=== PATIENT | female | born 1950 | race Two or more races ===

== ENCOUNTER 2024-09-18 15:12 | Emergency (ER) | payer MEDICARE, MEDICAID, SELFPAY ==
[2024-09-18 15:13] VITALS: BMI 30.2
[2024-09-18 15:20] VITALS: BP 179/80; PULSE 79; RESP 18; TEMP 36.7; O2SAT 98
--- NOTE | 2024-09-18 15:28 | XR_ITS ---
Examination: CTA chest, with intravenous contrast. CTA abdomen, with intravenous contrast. CTA pelvis, with intravenous contrast. 2-D sagittal and coronal reconstructions. 3-D reconstructions. Date and time of exam: September 10, 2024 1742 hrs. Indications: Left lower abdominal pain chest pain today, clinical diagnosis mesenteric ischemia CTDI vol (mgy) 18.1 DLP (MGycm) 786 Technique: Multiple CTA images, 2.0 mm slice thickness, obtained chest, abdomen, pelvis, with the high-resolution 64 slice scanner. 100 cc Isovue-370 is administered intravenously. Sagittal and coronal 2-D reconstructions are obtained. 3-D reconstructions, angiographic images are obtained. 3-D postprocessing, including vascular maximum intensity projections. Low dose protocols were performed. One or more of the following dose reduction techniques were used; automated exposure control, adjustment of the mA and/or KV according to patient size, use of iterative reconstruction technique. Findings: No thoracic aortic aneurysm dilatation or dissection No pulmonary artery emboli No paratracheal tracheobronchial or bronchopulmonary adenopathy No pneumonia or pulmonary edema or pleural disease Liver is irregular in contour Gallstones, gallbladder wall is mildly thickened Common bile duct is enlarged 12 mm, axial image 171 suspicious for 8 mm common bile duct stone Spleen is not enlarged Aorta normal size Normal appendix No ischemic small bowel or colon noted Anteverted uterus Bladder intact Grade 1 anterolisthesis L4 on L5 Impression: No thoracic aortic aneurysm dilatation or dissection Negative for pulmonary artery emboli Cholelithiasis, thickened gallbladder wall Extrahepatic biliary tract dilatation, common bile duct 12 mm, findings consistent with a millimeters impacted distal common bile duct stone, recommend MRCP follow-up
--- NOTE | 2024-09-18 15:31 | EKG_ITS ---
[facility] Test Date: 2024-09-18 Pat Name: MERNA BARRAZA Department: Room: - Gender: Female Billing Coordinator: : 1950 Requested By: Jeff Barr Order Number: [id number] Reading MD: Jeff Barr Measurements Intervals [place] Rate: 88 P: 62 IL: 154 QRS: 4 QRSD: 116 T: 51 QT: 340 QTc: 412 Interpretive Statements SINUS RHYTHM MODERATE INTRAVENTRICULAR CONDUCTION DELAY [110+ ms QRS DURATION] NONSPECIFIC T-WAVE ABNORMALITY No previous ECG available for comparison /[id number]/[email or web address]/[id number]/[id number].pdf
--- NOTE | 2024-09-18 15:33 | EDNOTE_ITS ---
ED Abdominal Pain RME/HPI General Chief Complaint: Abdominal Pain Stated complaint: LEFT LOWER ABD PAIN TODAY WITH NAUSEA Time seen by provider: 09/18/24 15:13 Arrival date/time: 09/18/24 15:12 Limitations: language barrier RME / HPI RME / HPI narrative: Chief Complaint: Severe left upper quadrant (LUQ) abdominal pain, onset 2 to 3 hours ago. History of Present Illness (HPI): The patient was brought in by her with complaints of severe LUQ abdominal pain, which began 2 to 3 hours ago. The pain is described as severe in nature and has not been experienced before by the patient. There are no known aggravating or alleviating factors. The pain is associated with nausea. The patient was recently diagnosed with liver problems by her primary care provider about 3 weeks ago. She has a remote history of knee surgery and what appears to be bilateral tubal ligation. The patient is nondiabetic and denies any other significant medical history. Review of Systems (ROS): * General: Diaphoretic, pale * Gastrointestinal: Severe LUQ abdominal pain, nausea * Other systems: Negative except as noted above Past Medical History (PMH): * Knee surgery (remote) * Bilateral tubal ligation (remote) * Recently diagnosed with liver problems (3 weeks ago) Past Surgical History (PSH): * Knee surgery * Bilateral tubal ligation Medications: None Allergies: NKDA Differential Diagnosis (DDx): * Acute pancreatitis * Peptic ulcer disease * Cholecystitis * Splenic infarct or rupture * Gastritis * Hepatitis or other liver pathology Medical Decision Making (MDM): The patient presents with severe LUQ abdominal pain, nausea, and recent diagnosis of liver problems. Given the severity and new onset of symptoms, several potential diagnoses must be considered, including acute pancreatitis, peptic ulcer disease, cholecystitis, splenic issues, gastritis, and liver pathology. Initial diagnostic workup will include: * Laboratory tests: CBC, liver function tests, amylase, and lipase to assess for pancreatitis and liver dysfunction * Imaging studies: Abdominal ultrasound and/or CT scan to evaluate the liver, pancreas, spleen, and other abdominal organs The patient will be monitored closely, and pain management will be initiated. Further management will depend on the results of the diagnostic tests. The patient and her have been informed about the possible causes and the plan of care. The patient appears to be in pain, so supportive care and pain relief measures will be provided immediately. Plan: * Obtain lab work: CBC, liver function tests, amylase, and lipase * Perform imaging studies: Abdominal ultrasound and/or CT scan * Pain management: [Specify pain medication] * Monitor vital signs and reassess frequently * Keep the patient NPO (nothing by mouth) until further evaluation * Provide supportive care and reassurance to the patient and her Related Data Home Medications ?Medication ?Instructions ?Recorded ?Confirmed ibuprofen 600 mg tablet 600 mg PO Q6HR PRN PAIN #0 tabs 08/11/17 Previous Rx's ?Medication ?Instructions ?Recorded ibuprofen 600 mg tablet 600 mg PO Q6HR PRN PAIN #25 tabs 08/11/17 ibuprofen 600 mg tablet 600 mg PO TID PRN pain #30 tabs 12/13/23 Allergies Allergy/AdvReac Type Severity Reaction Status Date / Time NKA* Allergy Uncoded 09/18/24 15:15 Review of Systems Review of Systems Systems Reviewed: All systems reviewed, normal except as documented ED Exam Narrative Physical exam: Hazel beltrán General Limitations: Present language barrier General appearance: Present in distress and other (Patient is pale and diaphoretic. Is visibly shaky and appears to be in pain) Head Head exam: Present atraumatic Eye Eye exam: Present normal appearance ENT ENT exam: Present normal exam Neck Neck exam: Present normal inspection Chest Chest inspection: Present symmetric chest wall rise Respiratory Respiratory exam: Present normal lung sounds bilaterally Cardiovascular Cardiovascular exam: Present regular rate and systolic murmur Abdominal Exam Abdominal exam: Present soft and other (Patient has an obese abdomen. Despite pointing to her left upper quadrant as very painful area, has no tenderness) Back Exam Back exam: Present normal inspection Neurological Exam Neurological exam: Present alert and CN II-XII intact Psychiatric Psychiatric exam: Present depressed Skin Skin exam: Present warm and dry Course Quality Measures none Orders Category Date Time Status Ballet Teacher STAT Care 09/18/24 19:20 Active Continuous Pulse Oximetry STAT Care 09/18/24 19:20 Completed EKG (ED ONLY) *Do not use* NOW Care 09/18/24 15:31 Completed Insert IV NOW Care 09/18/24 15:28 Active Insert IV STAT Care 09/18/24 19:20 Active MRI Screening NOW Care 09/18/24 23:15 Active NPO STAT Care 09/18/24 19:[address] angio chest abdomen pelvis Stat Exams 09/18/24 15:28 Completed EKG (ED Only) Stat Exams 09/18/24 15:31 Draft MR MRCP Stat Exams 09/18/24 Ordered US gall bladder Stat Exams 09/18/24 19:11 Completed CBC Stat Lab 09/18/24 15:46 Completed CMP [Comprehensive Metabolic Panel] Stat Lab 09/18/24 15:46 Completed Lipase Stat Lab 09/18/24 19:53 Completed Magnesium Stat Lab 09/18/24 19:53 Completed Troponin I Stat Lab 09/18/24 15:46 Completed UA [Urinalysis] Stat Lab 09/18/24 17:26 Completed HYDROmorphone INJ [Dilaudid Inj] Med 09/18/24 15:31 Discontinued 1 mg IVP X1 ONE Ondansetron Inj [Zofran Inj] Med 09/18/24 15:31 Discontinued 4 mg IV X1 ONE Sodium Chloride 0.9% 500 ml [Ns] 500 ml Med 09/18/24 19:19 Discontinued IV 999 mls/hr Vital Signs Vital signs: Vital Signs Temperature 98.0 F 09/18/24 15:20 Pulse Rate 79 09/18/24 15:20 Respiratory Rate 18 09/18/24 15:20 Blood Pressure 179/80 H 09/18/24 15:20 Pulse Oximetry (%) 98 09/18/24 15:20 Oxygen Delivery Method Room Air 09/18/24 15:20 Abdominal Pain MDM MDM Narrative MDM Narrative:: Care transitioned to Dr. Lemon at shift change Patient data External records reviewed:: None Clinical information provided by:: patient Social determinants that could affect healthcare access:: none Patient has the following chronic illnesses:: NA How is presenting disease/condition affected by chronic disease/condition?: no chronic disease Evaluation data The following diagnostics were reviewed and interpreted by me:: lab results, radiology exam(s) and EKG tracing(s) Lab and/or radiology exams considered but not ordered:: Noted Interpretation Summary: Noted Medications / Prescriptions Medications or Prescriptions considered but not ordered:: NA Medication administrations:: Medication Administration History Discontinued Medications Hydromorphone HCl (Hydromorphone Inj 2 Mg/Ml Vial) 1 mg IVP X1 ONE Stop: 09/18/24 15:32 Last Admin: 09/18/24 16:00 Dose: 1 mg Documented By: TM Sodium Chloride (Ns) 500 mls @ 999 mls/hr IV .Q31M ONE Stop: 09/18/24 19:49 Last Infusion: 09/18/24 20:26 Dose: Infused Documented By: Admin: 09/18/24 19:51 Dose: 999 mls/hr Documented By: SF Ondansetron HCl (Ondansetron Inj 2 Mg/Ml Inj 2 Ml) 4 mg IV X1 ONE; Protocol Stop: 09/18/24 15:32 Last Admin: 09/18/24 16:01 Dose: 4 mg Documented By: TM Noted Consultations Consultation(s) initiated? (list below): No Diagnosis Differential diagnosis abdominal pain: abdominal pain and calculus of kidney Most likely diagnosis given after review of the tests above:: Mesenteric ischemia Admission Indicated Admission indicated?: not indicated Admission Request Was there a request for admission?: No Disposition Plan Disposition Plan: other (specify) Discharge Plan Plan Facility Pt Being Transferred to: Other-Specify in comment Disposition Comment: Care transitioned to Dr. Lemon Patient condition on transfer: Stable Prescriptions/Referrals Prescriptions/Med Rec: No Action ibuprofen 600 MG tablet 600 mg PO Q6HR PRN (Reason: PAIN) Qty: 0 ibuprofen 600 MG tablet 600 mg PO Q6HR PRN (Reason: PAIN) Qty: 25 0RF ibuprofen 600 mg tablet 600 mg PO TID PRN (Reason: pain) Qty: 30 0RF Referrals: Minesh Medina MD [Primary Care Provider] - In 1 week Problem List Clinical Impression: Abdominal pain, LUQ Patient/Caregiver Discharge Instructions Print Language: Telugu
[2024-09-18 15:55] LABS: Basophils % (Auto) 0 % (0-2.5); Eosinophils % (Auto) 0 % (0-10); Hematocrit 39.3 % (36.0-46.0); Hemoglobin 13.3 g/dL (12.0-16.0); Immature Granulocytes % (Auto) 0 % (0-0); Immature Granulocytes Auto 0.03 Thou/mm3 (0.00-0.00); Lymphocytes # (Auto) 1.2 Thou/mm3 (1.0-4.8); Lymphocytes % (Auto) 10 % (10-50); Mean Corpuscular HGB Conc 33.8 g/dl (31.0-37.0); Mean Corpuscular Hemoglobin 29.7 pg (25.0-35.0); Mean Corpuscular Volume 88 fL (80-100); Monocytes # (Auto) 0.4 Thou/mm3 (0.0-0.8); Monocytes % (Auto) 3 % (0-12); Neutrophils # (Auto) 10.4 Thou/mm3 (1.8-7.7); Neutrophils % (Auto) 86 % (37-80); Nucleated Red Blood Cell % 0 /100 WBC (0); Platelet Count 281 Thou/mm3 (140-440); RDW Standard Deviation 41.4 fL (36.4-46.3); Red Blood Count 4.48 Miln/mm3 (4.00-5.20); White Blood Count 12.2 Thou/mm3 (3.6-11.0)
[2024-09-18] MEDS: HYDROmorphone INJ 2 MG/ML VIAL 1 MG IVP (16:00)
[2024-09-18] MEDS: ONDANSETRON INJ 2 MG/ML INJ 2 ML 4 MG IV (16:01)
[2024-09-18 16:15] LABS: Alanine Aminotransferase 90 U/L (10-49); Albumin, Serum 4.5 gm/dL (3.4-4.8); Albumin/Globulin Ratio 1.8 (1.2-2.2); Alkaline Phosphatase 647 U/L (46-116); Anion Gap 7 (7-16); Aspartate Amino Transferase 98 U/L (0-34); BUN/Creatinine Ratio 29 Ratio (12-20); Bilirubin,Total 3.5 mg/dL (0.3-1.2); Blood Urea Nitrogen 20 mg/dL (9-23); Calcium 10.2 mg/dL (8.3-10.6); Calcium (Corrected) 10.2 mg/dL (8.5-10.1); Carbon Dioxide 26.9 mMol/L (20.0-31.0); Chloride 106 mMol/L (98-107); Creatinine (Component) 0.7 mg/dL (0.6-1.3); Estimated Creatinine Clearance 62.3 mL/min (>60); Globulin 2.5 gm/dL (2.3-3.5); Glucose 122 mg/dL (74-106); Osmolality,Calculated 283 (275-295); Potassium 3.8 mMol/L (3.4-5.1); Sodium 140 mMol/L (136-145); Troponin I < 0.020 ng/mL (0.0-0.045); eGFR > 60 See Note
--- NOTE | 2024-09-18 17:14 | PC.NURSE ---
CT called this RN for CT screening, this RN had to add it to worklist to complete. Ct screening done pt ready for ct
[2024-09-18 17:30] LABS: Collection Type, Urine Clean Catch
[2024-09-18 17:36] LABS: Bilirubin,Urine 1+ (Negative); Blood,Urine Negative (Negative); Clarity,Urine Clear (Clear/Hazy); Color,Urine Yellow (Lt Yel-Yel); Glucose, Urine Negative (Negative); Ketones,Urine Negative (Negative); Leukocyte Esterase,Urine Positive (Negative); Nitrite,Urine Negative (Negative); Protein,Urine Negative (Neg - Trace); RBC,Urine 2 /hpf (0-3); Specific Gravity,Urine 1.019 (1.001-1.035); Squamous Epithelial Cell,Urine 1 /hpf (0-5); WBC,Urine 3 /hpf (0-5)
[2024-09-18 18:08] VITALS: BP 160/76; PULSE 95; RESP 19; TEMP 37.3; O2SAT 95
--- NOTE | 2024-09-18 19:11 | XR_ITS ---
Examination: Abdomen sonogram, Limited Date and time of exam: September 18, 2024 2130 hrs. Indications: History right upper abdominal pain today Technique: Real-time ryan scale transabdominal sonographic images abdomen Findings: Gallbladder sludge Cholelithiasis Gallbladder wall 0.39 cm no edema Common bile duct abnormally enlarged 1.4 cm no definite stones Pancreatic head 2.7 cm 116.7 cm fatty infiltration no focal liver lesions Normal hepatopedal portal venous flow Patent IVC Impression: Cholelithiasis Borderline thickening gallbladder wall Abnormally enlarged common bile duct 14 mm, consider MRCP follow-up to exclude common bile duct stones and/or stricture
[2024-09-18 19:49] VITALS: BP 128/86; PULSE 91; RESP 17; O2SAT 95
[2024-09-18] MEDS: SODIUM CHLORIDE 0.9% 500 ML 500 ML 999 ML IV (19:51)
--- NOTE | 2024-09-18 20:20 | PC.NURSE ---
pt resting quietly. Disconected from monitor to go to BR. Pts assisted her to BR. Pt denies pain at this time. Appears in NAD.
[2024-09-18 20:21] VITALS: BP 130/85; PULSE 90; RESP 18; TEMP 37.1; O2SAT 97
[2024-09-18 20:26] LABS: Lipase 158 U/L (12-53); Magnesium 1.9 mg/dL (1.6-2.6)
--- NOTE | 2024-09-18 21:15 | PC.NURSE ---
called US tech. She states she will be here soon. Pt continues to rest quietly. Denies pain at this time. . at bedside. I updated pt on our progres.
--- NOTE | 2024-09-18 21:58 | PD.EDADDENDU ---
Emergency Room Addendum <June Medina - Last Filed: 09/19/24 04:00> Addendum Narrative: 1800: Care assumed from Dr. Barr. Past medical, surgical, social and family history reviewed. Vitals and home medications reviewed. Results and treatment plan discussed. I will assume the care of the patient at this time. Patient is a 74-year-old female who presented the emergency department complaining of left upper abdominal pain with nausea. Patient denies chest pain or equivalent, diaphoresis, dyspnea. Patient denied fever, shakes, chills, sweats. No flank pain, dysuria, urinary frequency or urgency. Patient denies ever having this kind of pain in the past. Patient has history of hypertension and hypercholesterolemia. When I saw the patient she states that she is completely pain-free now. She denies nausea. On exam her abdomen is soft and nontender. Lungs are clear. Regular rate and rhythm. Before I arrived the patient received Dilaudid and Zofran. A workup was ordered including blood work, EKG and a CTA chest/abdomen/pelvis for some reason. Patient's blood work shows a very mild leukocytosis with a left shift, normal electrolytes, normal anion gap, normal renal function. Patient's BUN/creatinine ratio was 29, normal glucose, LFTs are elevated. Troponins are normal. Urine is nondiagnostic. Patient's CTA chest abdomen pelvis showed evidence of gallbladder pathology with thickened wall and perhaps some surrounding stranding. Patient is dehydrated and I have ordered fluids. Patient states she is pain-free so I have will hold off on analgesics at this point. I will order Zosyn for the patient as she may have cholecystitis and I have ordered a right upper quadrant ultrasound. Were unable to obtain a MRCP at this hour at this facility.. Will continue to monitor closely EKG 15:45 normal sinus rhythm at 88. Normal axis no ectopy. QRS is 116, QTc 386. No signs of acute ischemia. 2300: I discussed the results with the patient at bedside and the need for a MRCP in the morning. Patient is agreeable to stay until the morning for the MRCP. At this time, patient is placed under observation. OBSERVATION NOTE: The patient was placed in ED observation care at 09/18/2024 at 2300. The patient was placed in ED observation care because of pending MRCP in the morning. The patients past medical history, social history, and family history were reviewed. The plan of care will include serial examinations. 0600: Care signed out to the next oncoming provider. Past medical, surgical, social and family history reviewed. Vitals and home medications reviewed. Results and treatment plan discussed. They will assume the care of the patient at this time and will follow the patient, pending MRCP. RADIOLOGY RESULTS: [facility] Report Signed Patient: MERNA BARRAZA [facility]. Record#: [id number] Birthdate: 1950 Age/Sex: 74 / F Location: [facility] Attending Dr: Ordering Physician: Freddie Lemon MD Date of Service: 09/18/24 Procedure(s): US gall bladder Accession Number(s): [id number] cc: Minesh Medina MD; Rashaad Gamino MD; Freddie Lemon MD~ Examination: Abdomen sonogram, Limited Date and time of exam: September 18, 2024 2130 hrs. Indications: History right upper abdominal pain today Technique: Real-time ryan scale transabdominal sonographic images abdomen Findings: Gallbladder sludge Cholelithiasis Gallbladder wall 0.39 cm no edema Common bile duct abnormally enlarged 1.4 cm no definite stones Pancreatic head 2.7 cm 116.7 cm fatty infiltration no focal liver lesions Normal hepatopedal portal venous flow Patent IVC Impression: Cholelithiasis Borderline thickening gallbladder wall Abnormally enlarged common bile duct 14 mm, consider MRCP follow-up to exclude common bile duct stones and/or stricture Dictated By: Rashaad Gamino MD Signed By: <Electronically signed by Rashaad Gamino MD in OV> 09/18/242150 ------- [facility] Report Signed Patient: MERNA BARRAZA [facility]. Record#: [id number] Birthdate: 1950 Age/Sex: 74 / F Location: [facility] Attending Dr: Ordering Physician: Jeff Barr MD Date of Service: 09/18/24 Procedure(s): CT angio chest abdomen pelvis Accession Number(s): [id number] cc: Minesh Medina MD; Jeff Barr MD; Rashaad Gamino MD~ Examination: CTA chest, with intravenous contrast. CTA abdomen, with intravenous contrast. CTA pelvis, with intravenous contrast. 2-D sagittal and coronal reconstructions. 3-D reconstructions. Date and time of exam: September 10, 2024 1742 hrs. Indications: Left lower abdominal pain chest pain today, clinical diagnosis mesenteric ischemia CTDI vol (mgy) 18.1 DLP (MGycm) 786 Technique: Multiple CTA images, 2.0 mm slice thickness, obtained chest, abdomen, pelvis, with the high-resolution 64 slice scanner. 100 cc Isovue-370 is administered intravenously. Sagittal and coronal 2-D reconstructions are obtained. 3-D reconstructions, angiographic images are obtained. 3-D postprocessing, including vascular maximum intensity projections. Low dose protocols were performed. One or more of the following dose reduction techniques were used; automated exposure control, adjustment of the mA and/or KV according to patient size, use of iterative reconstruction technique. Findings: No thoracic aortic aneurysm dilatation or dissection No pulmonary artery emboli No paratracheal tracheobronchial or bronchopulmonary adenopathy No pneumonia or pulmonary edema or pleural disease Liver is irregular in contour Gallstones, gallbladder wall is mildly thickened Common bile duct is enlarged 12 mm, axial image 171 suspicious for 8 mm common bile duct stone Spleen is not enlarged Aorta normal size Normal appendix No ischemic small bowel or colon noted Anteverted uterus Bladder intact Grade 1 anterolisthesis L4 on L5 Impression: No thoracic aortic aneurysm dilatation or dissection Negative for pulmonary artery emboli Cholelithiasis, thickened gallbladder wall Extrahepatic biliary tract dilatation, common bile duct 12 mm, findings consistent with a millimeters impacted distal common bile duct stone, recommend MRCP follow-up Dictated By: Rashaad Gamino MD Signed By: <Electronically signed by Rashaad Gamino MD in OV> 09/18/24 1822 <Freddie Lemon MD - Last Filed: 09/19/24 06:15> Addendum Narrative: 1800: Care assumed from Dr. Barr. Past medical, surgical, social and family history reviewed. Vitals and home medications reviewed. Results and treatment plan discussed. I will assume the care of the patient at this time. Patient is a 74-year-old female who presented the emergency department complaining of left upper abdominal pain with nausea. Patient denies chest pain or equivalent, diaphoresis, dyspnea. Patient denied fever, shakes, chills, sweats. No flank pain, dysuria, urinary frequency or urgency. Patient denies ever having this kind of pain in the past. Patient has history of hypertension and hypercholesterolemia. When I saw the patient she states that she is completely pain-free now. She denies nausea. On exam her abdomen is soft and nontender. Lungs are clear. Regular rate and rhythm. Before I arrived the patient received Dilaudid and Zofran. A workup was ordered including blood work, EKG and a CTA chest/abdomen/pelvis for some reason. Patient's blood work shows a very mild leukocytosis with a left shift, normal electrolytes, normal anion gap, normal renal function. Patient's BUN/creatinine ratio was 29, normal glucose, LFTs are elevated. Troponins are normal. Urine is nondiagnostic. Patient's CTA chest abdomen pelvis showed evidence of gallbladder pathology with thickened wall and perhaps some surrounding stranding. Patient is dehydrated and I have ordered fluids. Patient states she is pain-free so I have will hold off on analgesics at this point. I will order Zosyn for the patient as she may have cholecystitis and I have ordered a right upper quadrant ultrasound. Were unable to obtain a MRCP at this hour at this facility.. Will continue to monitor closely EKG 15:45 normal sinus rhythm at 88. Normal axis no ectopy. QRS is 116, QTc 386. No signs of acute ischemia. 2300: I discussed the results with the patient at bedside and the need for a MRCP in the morning. Patient is agreeable to stay until the morning for the MRCP. At this time, patient is placed under observation. OBSERVATION NOTE: The patient was placed in ED observation care at 09/18/2024 at 2300. The patient was placed in ED observation care because of pending MRCP in the morning. The patients past medical history, social history, and family history were reviewed. The plan of care will include serial examinations. 0600: Care signed out to Dr Barr pending MRCP. Past medical, surgical, social and family history reviewed. Vitals and home medications reviewed. Results and treatment plan discussed. They will assume the care of the patient at this time and will follow the patient, pending MRCP. RADIOLOGY RESULTS: [id number] Birthdate: 1950 Age/Sex: 74 / F Location: [facility]X Attending Dr: Ordering Physician: Freddie Lemon MD Date of Service: 09/18/24 Procedure(s): US gall bladder Accession Number(s): [id number] cc: Minesh Medina MD; Rashaad Gamino MD; Freddie Lemon MD~ Examination: Abdomen sonogram, Limited Date and time of exam: September 18, 2024 2130 hrs. Indications: History right upper abdominal pain today Technique: Real-time ryan scale transabdominal sonographic images abdomen Findings: Gallbladder sludge Cholelithiasis Gallbladder wall 0.39 cm no edema Common bile duct abnormally enlarged 1.4 cm no definite stones Pancreatic head 2.7 cm 116.7 cm fatty infiltration no focal liver lesions Normal hepatopedal portal venous flow Patent IVC Impression: Cholelithiasis Borderline thickening gallbladder wall Abnormally enlarged common bile duct 14 mm, consider MRCP follow-up to exclude common bile duct stones and/or stricture Dictated By: Rashaad Gamino MD Signed By: <Electronically signed by Rashaad Gamino MD in OV> 09/18/242150 ------- [facility] [id number] Birthdate: 1950 Age/Sex: 74 / F Location: [facility]X Attending Dr: Ordering Physician: Jeff Barr MD Date of Service: 09/18/24 Procedure(s): CT angio chest abdomen pelvis Accession Number(s): [id number] cc: Minesh Medina MD; Jeff Barr MD; Rashaad Gamino MD~ Examination: CTA chest, with intravenous contrast. CTA abdomen, with intravenous contrast. CTA pelvis, with intravenous contrast. 2-D sagittal and coronal reconstructions. 3-D reconstructions. Date and time of exam: September 10, 2024 1742 hrs. Indications: Left lower abdominal pain chest pain today, clinical diagnosis mesenteric ischemia CTDI vol (mgy) 18.1 DLP (MGycm) 786 Technique: Multiple CTA images, 2.0 mm slice thickness, obtained chest, abdomen, pelvis, with the high-resolution 64 slice scanner. 100 cc Isovue-370 is administered intravenously. Sagittal and coronal 2-D reconstructions are obtained. 3-D reconstructions, angiographic images are obtained. 3-D postprocessing, including vascular maximum intensity projections. Low dose protocols were performed. One or more of the following dose reduction techniques were used; automated exposure control, adjustment of the mA and/or KV according to patient size, use of iterative reconstruction technique. Findings: No thoracic aortic aneurysm dilatation or dissection No pulmonary artery emboli No paratracheal tracheobronchial or bronchopulmonary adenopathy No pneumonia or pulmonary edema or pleural disease Liver is irregular in contour Gallstones, gallbladder wall is mildly thickened Common bile duct is enlarged 12 mm, axial image 171 suspicious for 8 mm common bile duct stone Spleen is not enlarged Aorta normal size Normal appendix No ischemic small bowel or colon noted Anteverted uterus Bladder intact Grade 1 anterolisthesis L4 on L5 Impression: No thoracic aortic aneurysm dilatation or dissection Negative for pulmonary artery emboli Cholelithiasis, thickened gallbladder wall Extrahepatic biliary tract dilatation, common bile duct 12 mm, findings consistent with a millimeters impacted distal common bile duct stone, recommend MRCP follow-up Dictated By: Rashaad Gamino MD Signed By: <Electronically signed by Rashaad Gamino MD in OV> 09/18/24 4750
[2024-09-18 22:26] VITALS: BP 163/49; PULSE 78; RESP 18; TEMP 37; O2SAT 94
--- NOTE | 2024-09-18 23:01 | PC.NURSE ---
speaking with pt and family now. Pt will be waiting here in ED for further testing in am.
--- NOTE | 2024-09-18 23:19 | PC.NURSE ---
Pts went home. Call light placed at pts side with instructions on how and when to use.
[2024-09-18 23:35] VITALS: BP 178/96; PULSE 80; RESP 18; O2SAT 96
[2024-09-19] VITALS (10 sets, daily range): BP systolic 147–225; BP diastolic 79–111; PULSE 68–94; RESP 16–20; TEMP 36.3–37.1; O2SAT 96–98
--- NOTE | 2024-09-19 | XR_ITS ---
MRI abdomen, without contrast. MRCP Date and time of exam: September 19, 2024 at 0925 hrs. Indications: Elevated liver function tests with abdominal pain today, Doppler sonogram yesterday enlarged common bile duct Technique: Multiple axial and coronal images of the abdomen have been obtained with the Siemens 1.5T MRI scanner. Images obtained included T1 weighted transverse images, T2-weighted transverse images, T2-weighted transverse images fat-suppressed, T2 weighted haste fat suppressed transverse images, T1 weighted images, in and out of phase images, T2-weighted coronal images, breath hold, T2 weighted haze coronal images as well as T2 weighted coronal thick slab images, MRCP. Findings: Liver 15 cm no focal liver lesions Cholelithiasis, negative for cholecystitis Enlarged common bile duct 14 mm, 14 mm stone in the common bile duct No pancreatic mass or dilated pancreatic duct Spleen is not enlarged No hydronephrosis No ascites Impression: Cholelithiasis, negative for cholecystitis Enlarged common bile duct 14 mm with 14 mm stone in the common bile duct
--- NOTE | 2024-09-19 05:53 | PD.EDADDENDU ---
Emergency Room Addendum <Jeff Barr MD - Last Filed: 09/19/24 05:53> Addendum Narrative: Care Transitioned from Dr. Lemon. Pending MRCP <Nadege Lockhart - Last Filed: 09/19/24 15:58> Addendum Narrative: 0600: Care assumed from Dr. Lemon, the previous shift emergency physician. Past medical, surgical, social and family history reviewed. Vitals and home medications reviewed. I will assume the care of the patient at this time, pending MRCP. Please refer to the emergency department record for history and examination from initial visit.? Nursing notes reviewed by me. Vital signs reviewed by me. [place] medical records reviewed by me. 1020: At this time patient reports no pain. Blood pressure is elevated at 225/87, will order medications. We reviewed all the results, analysis, and treatment plans. Patient is amenable to transfer. 1300: I spoke with GI Dr. Mcpherson at [facility]. Discussed patients PMHx, HPI, ED course, exam findings, labs, and radiology results. He accepts the patient for transfer. 1535: EMS here to txfer patient. Patient txfered in stable condition. RADIOLOGY Ordering Physician: Freddie Lemon MD Date of Service: 09/19/24 Procedure(s): MR MRCP Accession Number(s): [id number] cc: Minesh Medina MD; Rashaad Gamino MD; Freddie Lemon MD~ MRI abdomen, without contrast. MRCP Date and time of exam: September 19, 2024 at 0925 hrs. Indications: Elevated liver function tests with abdominal pain today, Doppler sonogram yesterday enlarged common bile duct Technique: Multiple axial and coronal images of the abdomen have been obtained with the Siemens 1.5T MRI scanner. Images obtained included T1 weighted transverse images, T2-weighted transverse images, T2-weighted transverse images fat-suppressed, T2 weighted haste fat suppressed transverse images, T1 weighted images, in and out of phase images, T2-weighted coronal images, breath hold, T2 weighted haze coronal images as well as T2 weighted coronal thick slab images, MRCP. Findings: Liver 15 cm no focal liver lesions Cholelithiasis, negative for cholecystitis Enlarged common bile duct 14 mm, 14 mm stone in the common bile duct No pancreatic mass or dilated pancreatic duct Spleen is not enlarged No hydronephrosis No ascites Impression: Cholelithiasis, negative for cholecystitis Enlarged common bile duct 14 mm with 14 mm stone in the common bile duct Dictated By: Rashaad Gamino MD Signed By: <Electronically signed by Rashaad Gamino MD in OV> 09/19/24 1015
[2024-09-19] MEDS: METOPROLOL TARTRATE INJ 1 MG/ML AMP 5 ML 5 MG IVP (08:35)
--- NOTE | 2024-09-19 10:38 | PC.CM ---
Addendum entered by Rox Barber RN 09/19/24 14:20: car supplier time with [employer] set for 1600. I gave packet with CD to ED charge nurse. I let her know machine pecan picker time set for 1600, but if they have a unit available sooner they will come for patient. Addendum entered by Rox Barbre RN 09/19/24 13:11: Patient has been accepted by Dr. Mcpherson from [facility]. Patient will go the the ED and the number to call and give report to [phone]. I will call and set up transport. Original Note: I received a referral to transfer patient for ERCP. I initiated a transfer with [facility] and I faxed over information.
[2024-09-19] MEDS: hydrALAZINE INJ 20 MG/ML VIAL 10 MG IV (11:04)
[2024-09-19] MEDS: ENALAPRILAT INJ 1.25 MG/ML VIAL 2.5 MG IVP (11:05)
[2024-09-19] MEDS: PIPER/TAZO INJ 3.375 GM in SODIUM CHLORIDE 0.9% (P) 50 ML IV (15:01)
== END 2024-09-19 15:39 | disposition short-term general hospital (02) ==
PROVIDERS: Emergency Medicine; Emergency Provider Emergency Medicine; PCP Family Medicine
DX: K80.70 Calculus of gallbladder and bile duct without cholecystitis without obstruction (principal); I45.89 Other specified conduction disorders; Z75.1 Person awaiting admission to adequate facility elsewhere
CPT/HCPCS: 36415; 71275; 74174; 76705; 80053; 81001; 83690; 83735; 84484; 85025; 93005; 96361; 96365; 99285; A4649; J0360; J2405; J2543; J3490; J7040; J7050; Q9967; S8037; 74181

== ENCOUNTER → 2025-06-16 | Outpatient (CLI) | payer BC, SELFPAY ==
--- NOTE | 2025-06-16 14:36 | XR_ITS ---
Examination: Shoulder,right, 3 views Technique: Shoulder AP internal rotation, AP external rotation, Y view shoulder, 3 views Exam date and time :June 16, 2025, 1457 hours, comparison December 15, 2023 INDICATIONS: Right shoulder pain beginning one week ago. FINDINGS: Moderate osteoarthritis glenohumeral joint Right shoulder calcific tendinitis. No fracture or shoulder dislocation. IMPRESSION: Moderate osteoarthritis glenohumeral joint Significant right shoulder calcific tendinitis
== END | disposition home or self-care (01) ==
PROVIDERS: PCP Nurse Practitioner Family; Referring Provider Nurse Practitioner Family; Visit Provider Nurse Practitioner Family
DX: M19.011 Primary osteoarthritis, right shoulder (principal); M75.31 Calcific tendinitis of right shoulder
CPT/HCPCS: 73030

== ENCOUNTER → 2025-06-17 | Outpatient (CLI) | payer MEDICARE, MEDICAID, SELFPAY ==
[2025-06-17 10:43] LABS: Basophils # (Auto) 0.1 Thou/mm3 (0.0-0.2); Basophils % (Auto) 0 % (0-2.5); Eosinophils # (Auto) 0.1 Thou/mm3 (0.0-0.5); Eosinophils % (Auto) 1 % (0-10); Hematocrit 38.3 % (36.0-46.0); Hemoglobin 12.8 g/dL (12.0-16.0); Immature Granulocytes Auto 0.04 Thou/mm3 (0.00-0.00); Lymphocytes # (Auto) 3.9 Thou/mm3 (1.0-4.8); Lymphocytes % (Auto) 33 % (10-50); Mean Corpuscular HGB Conc 33.4 g/dl (31.0-37.0); Mean Corpuscular Hemoglobin 29.3 pg (25.0-35.0); Mean Corpuscular Volume 88 fL (80-100); Monocytes # (Auto) 1.0 Thou/mm3 (0.0-0.8); Monocytes % (Auto) 8 % (0-12); Neutrophils # (Auto) 6.7 Thou/mm3 (1.8-7.7); Neutrophils % (Auto) 57 % (37-80); Nucleated Red Blood Cell # 0.00 Thou/mm3 (0.00-0.00); Nucleated Red Blood Cell % 0 /100 WBC (0); Platelet Count 246 Thou/mm3 (140-440); RDW Standard Deviation 40.4 fL (36.4-46.3); Red Blood Count 4.37 Miln/mm3 (4.00-5.20); White Blood Count 11.7 Thou/mm3 (3.6-11.0)
[2025-06-17 10:54] LABS: Glucose Estimated Average 117 mg/dL (80-131); Hemoglobin A1C 5.7 % Hgb (4.8-6.0)
[2025-06-17 11:02] LABS: Alanine Aminotransferase 10 U/L (10-49); Albumin, Serum 4.0 gm/dL (3.4-4.8); Albumin/Globulin Ratio 2.1 (1.2-2.2); Alkaline Phosphatase 100 U/L (46-116); Anion Gap 8 (7-16); Aspartate Amino Transferase 11 U/L (0-34); BUN/Creatinine Ratio 29 Ratio (12-20); Bilirubin,Total 1.5 mg/dL (0.3-1.2); Blood Urea Nitrogen 20 mg/dL (9-23); Calcium 9.7 mg/dL (8.3-10.6); Calcium (Corrected) 9.7 mg/dL (8.5-10.1); Carbon Dioxide 26.6 mMol/L (20.0-31.0); Cardiac Risk Estimate 4.2 RATIO (3.7-5.6); Chloride 109 mMol/L (98-107); Cholesterol 186 mg/dL (132-200); Creatinine (Component) 0.7 mg/dL (0.6-1.3); Globulin 1.9 gm/dL (2.3-3.5); Glucose 93 mg/dL (74-106); HDL Cholesterol 44 mg/dL (40-60); LDL Cholesterol,Calculated 108 mg/dL (0-130); Osmolality,Calculated 289 (275-295); Potassium 3.8 mMol/L (3.4-5.1); Sodium 144 mMol/L (136-145); Total Protein 5.9 gm/dL (5.7-8.2); Triglycerides 172 mg/dL (30-150); eGFR > 60 See Note
[2025-06-23 06:58] LABS: Direct LDL* 128 mg/dL (<100)
== END | disposition home or self-care (01) ==
LOC: COPL 09:51
PROVIDERS: PCP Family Medicine; Referring Provider Nurse Practitioner Family; Visit Provider Nurse Practitioner Family
DX: I10 Essential (primary) hypertension (principal); Z13.1 Encounter for screening for diabetes mellitus; Z13.220 Encounter for screening for lipoid disorders
CPT/HCPCS: 36415; 80053; 80061; 83036; 83721; 85025

== ENCOUNTER → 2025-08-07 | Outpatient (CLI) | payer MEDICARE, MEDICAID, SELFPAY ==
--- NOTE | 2025-08-07 10:17 | XR_ITS ---
EXAMINATION: Right knee 2 views TECHNIQUE: 1. Right knee 2 views Date and time: August 07, 2025, 1022 hours INDICATIONS: Right knee pain 10 years. FINDINGS: Severe osteopenia Advanced tricompartment osteoarthritis No fracture Small knee effusion IMPRESSION: Advanced tricompartment osteoarthritis
--- NOTE | 2025-08-07 14:00 | XR_ITS ---
EXAMINATION: Ultrasound soft tissue neck TECHNIQUE: Grayscale sonographic images soft tissue neck INDICATIONS: Palpable lumps in the lower neck noticed beginning 3 years ago Date and time: August 07 2025, 10:30 a.m. FINDINGS: Soft tissue lipomatous type mass in the right lower lateral neck 4.9 x 2.0 x 2.5 cm Soft tissue lipomatous type mass in the left lower neck is 3.8 x 1.3 x 2.6 cm IMPRESSION: Probably benign lipomas in the soft tissue neck as above, recommend 3 to 6-month follow-up ultrasound soft tissue neck
== END | disposition home or self-care (01) ==
PROVIDERS: PCP Nurse Practitioner Family; Referring Provider Nurse Practitioner Family; Visit Provider Nurse Practitioner Family
DX: R22.1 Localized swelling, mass and lump, neck (principal); M17.11 Unilateral primary osteoarthritis, right knee
CPT/HCPCS: 73560; 76536